=== PATIENT | male | born 1970 | race Caucasian/White ===

== ENCOUNTER 2017-03-10 00:03 | Emergency (ER) | payer BC ==
[2017-03-10 00:16] VITALS: BP 165/99; PULSE 120; RESP 18; TEMP 99; O2SAT 92
--- NOTE | 2017-03-10 00:17 | EDPHY ---
H & P HPI/ROS: HPI CHIEF COMPLAINT: Head laceration, head trauma, tazed, [place], altercation with police, alcohol intoxication HISTORY OF PRESENT ILLNESS: This patient is a 46-year-old male denies any significant medical history presents emergency room by EMS with police. 911 was called to his house as he was intoxicated with alcohol and got into an argument with his . His called 911. Please make contact with him and became aggressive with police. He was tazed once. He did become physically aggressive with police. Sustained a left forehead laceration 3 cm in horizontal length. Upon arrival here in emergency room the patient smells of alcohol, slurring his speech slightly but denies any pain anywhere. Past Medical History: Denies medical history Past Surgical History: Denies surgical history Social History: Endorses alcohol this evening states he had 3 drinks Family History: Noncontributory ROS REVIEW OF SYSTEMS: A comprehensive 10 point review of systems is otherwise negative aside from elements mentioned in the history of present illness. Exam Constitutional Smells of etoh, triage nursing summary reviewed, vital signs reviewed, awake/alert. Eyes normal conjunctivae and sclera, EOMI, PERRLA. HENT head/neck: Left forehead: Vertical laceration 5 cm in length, no midline cervical spine pain, no step-offs, moist mucus membranes, no epistaxis, neck supple/ no meningismus, no raccoon eyes. Respiratory clear to auscultation bilaterally, normal breath sounds, no respiratory distress, no wheezing. Cardiovascular Chest wall: TTP sternum, No crepitus, no flail chest. No subQ air. No lateral rib pain, rate normal, regular rhythm, no murmur, no edema, distal pulses normal. Gastrointestinal soft, non-tender, no rebound, no guarding, normal bowel sounds, no distension, no pulsatile mass. Genitourinary no CVA tenderness. Musculoskeletal no midline vertebral tenderness, full range of motion, no calf swelling, no tenderness of extremities, no meningismus, good pulses, neurovascularly intact. Skin Ecchymosis to both forearms, Tazer site to left [id number]. Also Tazer site to left forearm. pink, warm, & dry, no rash, skin atraumatic. Neurologic Smells of etoh, awake, alert and oriented x 3, AAOx3, moves all 4 extremities equally, motor intact, sensory intact, CN II-XII intact, normal cerebellar, normal vision. Psychiatric normal mood/affect. Heme/Lymph/Immune no lymphadenopathy. Differential Diagnosis: Includes but is not limited to and in no particular order: Includes closed head injury, intracranial bleed, skull fracture, forehead laceration, alcohol intoxication. Medical Decision Making: Plan for this patient check basic blood work, EKG, CT head without contrast for trauma. Will need to suture his forehead laceration. Re-evaluation: EKG interpretation by me on record in [facility] system. Impression time of EKG 0020. This is sinus tachycardia rate of 117. I do not appreciate acute ischemia specifically no ST elevation, ST depression, T-wave abnormalities prolonged intervals. Unremarkable EKG except for tachycardia. Laceration Repair Procedure: Verbal Consent was obtained, Under sterile conditions, The patient had lidocaine with epinephrine used approximately 5ccs to local anesthetize the 5CM left forehead Laceration. The wound was copiously irrigated with sterile fluid, the wound was explored for foreign bodies there were none visualized, the wound was explored with a sterile glove to the base. There are no deep structures involved, including no arterial injury. 5 6.O PROLENE interrupted Sutures were placed in this patient's laceration. He had good close approximation of the wound edges. He Tolerated this well. ED x-ray chest two view: Negative for acute cardiopulmonary disease specifically no pneumothorax, rib fracture. Image interpreted myself. ED CT scan head without IV contrast: Negative for acute bleed or skull fracture. Left forehead hematoma. See formal report by Dr. Kyle. Debris reported near wound. I have copiously irrigating clean this out. 0132AM: Re-evaluation at this time patient resting comfortably. No complaints. CT scan reviewed as well as x-ray reviewed. Laceration was sterilely repair. Cleaned out. Foreign body seen on CT scan his wounds were copiously irrigated. Patient understands watch for further infection down lying this includes swelling, pus, drainage. Blood work reviewed. Patient now clinically sober. Stable gait, calm, cooperative. Safe for discharge. Source: Patient, Police, EMS - Medical/Surgical History Hx Asthma: No Hx Chronic Respiratory Disease: No Hx Diabetes: No Hx Cardiac Disease: No Hx Renal Disease: No Hx Cirrhosis: No Hx Alcoholism: No Hx HIV/AIDS: No Hx Splenectomy or Spleen Trauma: No Other PMH: HX: DENIES - Social History Smoking Status: Current some day smoker Constitutional: Initial Vital Signs Temperature (C) 37.2 C 03/10/17 00:14 Heart Rate 120 H 03/10/17 00:14 Respiratory Rate 18 03/10/17 00:14 Blood Pressure 165/99 H 03/10/17 00:14 O2 Sat (%) 92 03/10/17 00:14 O2 Delivery Mode Room Air Allergies/Adverse Reactions: No Known Allergies Allergy (Unverified 03/14/14 21:42) Home Medications: Medication Instructions Recorded Carisoprodol [Soma] 350 mg PO TIDMEAL PRN #20 tab 01/04/15 HYDROmorphone HCL [Dilaudid] 2 mg PO QID PRN #30 tab 01/04/15 Ibuprofen [Motrin] 800 mg PO Q8 #30 tab 01/04/15 Medical Decision Making - Data Points Laboratory Results: Laboratory Results 03/10/17 00:50 03/10/17 00:50 03/10/17 03/10/17 00:50 00:50 WBC 8.57 10^3/uL 10^3/uL (3.80-9.50) RBC 4.80 10^6/uL 10^6/uL (4.40-6.38) Hgb 15.0 g/dL g/dL (13.7-17.5) Hct 42.7 % % (40.0-51.0) MCV 89.0 fL fL (81.5-99.8) MCH 31.3 pg pg (27.9-34.1) MCHC 35.1 g/dL g/dL (32.4-36.7) RDW 12.1 % % (11.5-15.2) Plt Count 251 10^3/uL 10^3/uL (150-400) MPV 9.6 fL fL (8.7-11.7) Neut % (Auto) 66.4 % % (39.3-74.2) Lymph % (Auto) 22.8 % % (15.0-45.0) [place] % (Auto) 8.3 % % (4.5-13.0) Eos % (Auto) 1.1 % % (0.6-7.6) Baso % (Auto) 0.5 % % (0.3-1.7) Nucleat RBC Rel Count 0.0 % % (0.0-0.2) Absolute Neuts (auto) 5.70 10^3/uL 10^3/uL (1.70-6.50) Absolute Lymphs (auto) 1.95 10^3/uL 10^3/uL (1.00-3.00) Absolute Monos (auto) 0.71 10^3/uL 10^3/uL (0.30-0.80) Absolute Eos (auto) 0.09 10^3/uL 10^3/uL (0.03-0.40) Absolute Basos (auto) 0.04 10^3/uL 10^3/uL (0.02-0.10) Absolute Nucleated RBC 0.00 10^3/uL 10^3/uL (0-0.01) Immature Gran % 0.9 % % (0.0-1.1) Immature Gran # 0.08 10^3/uL 10^3/uL (0.00-0.10) Sodium 142 mEq/L mEq/L (134-144) Potassium 4.1 mEq/L mEq/L (3.5-5.2) Chloride 107 mEq/L mEq/L (97-110) Carbon Dioxide 20 mEq/l L mEq/l (22-31) Anion Gap 15 mEq/L mEq/L (8-16) BUN 17 mg/dL mg/dL (7-23) Creatinine 1.0 mg/dL mg/dL (0.7-1.3) Estimated GFR > 60 Glucose 100 mg/dL mg/dL (70-100) Calcium 9.4 mg/dL mg/dL (8.5-10.4) Ethyl Alcohol 177 mg/dL H mg/dL (0-10) Medications Given: Discontinued Medications Sodium Chloride (Ns) 1,000 mls @ 0 mls/hr IV ONCE ONE PRN Reason: Wide Open Stop: 03/10/17 00:20 Last Admin: 03/10/17 01:06 Dose: 1,000 mls Departure - Departure Disposition: Home, Routine, Self-Care Clinical Impression: Alcohol intoxication Qualifiers: Complication of substance-induced condition: uncomplicated Qualified Code(s): F10.920 - Alcohol use, unspecified with intoxication, uncomplicated Forehead laceration Qualifiers: Encounter type: initial encounter Qualified Code(s): S01.81XA - Laceration without foreign body of other part of head, initial encounter Condition: Good Instructions: Care For Your Stitches (ED), Laceration (ED) Additional Instructions: 1. Your sutures need to be removed in 7 days. 2. Keep your wound clean, dry, protected. 3. Watch for signs of infection this includes redness, swelling, drainage, pus. Referrals: Patient,NotPresent [Unknown] - As per Instructions
[2017-03-10] MEDS ORDERED: NS 1,000 ML IV ONE (00:19)
--- NOTE | 2017-03-10 00:23 | CPEKG ---
Heart Rate: 117 RR Interval: 513 P-R Interval: 132 QRSD Interval: 74 QT Interval: 308 QTC Interval: 430 P Mesa: 64 QRS [place]: 9 T Wave [place]: 77 EKG Severity - OTHERWISE NORMAL ECG - EKG Impression: SINUS TACHYCARDIA Electronically Signed By: Sanya Guajardo 11-Mar-2017 13:59:20
[2017-03-10 00:59] LABS: % IMMATURE GRANULYOCYTES 0.9 % (0.0-1.1); ABSOLUTE IMMATURE GRANULOCYTES 0.08 10^3/uL (0.00-0.10); ADD DIFF? NO; ADD MORPH? NO; ADD SCAN? NO; ATYPICAL LYMPHOCYTE FLAG 10 (0-99); FRAGMENT RBC FLAG 0 (0-99); HEMATOCRIT 42.7 % (40.0-51.0); LEFT SHIFT FLG 10 (0-99); LIPEMIA HEMOLYSIS FLAG 90 (0-99); MEAN CELL HEMOGLOBIN 31.3 pg (27.9-34.1); MEAN CELL HEMOGLOBIN CONCENTR. 35.1 g/dL (32.4-36.7); MEAN PLATELET VOLUME 9.6 fL (8.7-11.7); PLATELET CLUMPS FLAG 0 (0-99); PLATELET COUNT 251 10^3/uL (150-400); RED CELL DISTRIBUTION WIDTH 12.1 % (11.5-15.2)
[2017-03-10 01:24] LABS: ANION GAP 15 mEq/L (8-16); CALCIUM 9.4 mg/dL (8.5-10.4); CARBON DIOXIDE 20 mEq/l (22-31); CHLORIDE 107 mEq/L (97-110); ETHANOL SERUM 177 mg/dL (0-10); GLOMERULAR FILTRATION RATE > 60; GLUCOSE 100 mg/dL (70-100); POTASSIUM 4.1 mEq/L (3.5-5.2); SODIUM 142 mEq/L (134-144)
== END 2017-03-10 01:45 | disposition home or self-care (01) ==
LOC: EDUNIT#
PROC: 0HQ1XZZ Repair Face Skin, External Approach (ICD-10-PCS; principal; 2017-03-10)
DX: S01.81XA Laceration without foreign body of other part of head, initial encounter (principal); F10.120 Alcohol abuse with intoxication, uncomplicated; F17.200 Nicotine dependence, unspecified, uncomplicated; X58.XXXA Exposure to other specified factors, initial encounter
CPT/HCPCS: G0480

== ENCOUNTER 2018-04-30 09:07 | Emergency (ER) | payer BC ==
--- NOTE | 2018-04-30 10:56 | EDPHY ---
H & P Smoking Status: Current some day smoker Time Seen by Provider: 04/30/18 09:28 HPI/ROS: CHIEF COMPLAINT: Scalp laceration HISTORY OF PRESENT ILLNESS: 47-year-old male presents to the emergency department with laceration to his scalp. The patient was at home painting his house early this morning IV stood up abruptly while he was on the ladder and cut the left lateral aspect of his scalp. He did not lose consciousness. He denies a headache. He does not feel dizzy. No neck or back pain. No chest pain or difficulty breathing. No abdominal pain. He believes his tetanus shot is current. REVIEW OF SYSTEMS: Constitutional: No fever, no chills. Eyes: No double or blurry vision. ENT: No sore throat. Respiratory: No cough, no shortness of breath. Cardiac: No chest pain. Gastrointestinal: No abdominal pain, vomiting or diarrhea. Genitourinary: No dysuria. Musculoskeletal: No neck or back pain. Skin: Scalp laceration. No rashes. Neurological: No headache. (Kelly Larsen) Past Medical/Surgical History: Negative (Kelly Larsen) Social History: (Kelly Larsen) Physical Exam: General Appearance: Alert, no distress. Mentating normally and answering questions appropriately. Eyes: Pupils equal and round. Extraocular motions are all intact. ENT: Mouth: Mucous membranes moist. Respiratory: No wheezing, rhonchi, or rales, lungs are clear to auscultation. Cardiovascular: Regular rate and rhythm. Gastrointestinal: Abdomen is soft and nontender, no masses, no rebound or guarding, bowel sounds normal. Neurological: Alert and oriented x 3, cranial nerves II through XII grossly intact Skin: 3 cm laceration to the left frontal aspect of the scalp. No evidence of depressed skull fracture. Warm and dry, no rashes. Musculoskeletal: Nontender to palpate along the cervical, thoracic or lumbar spine. Neck is supple. Extremities: Full range of motion and no peripheral edema. Psychiatric: Patient is oriented X 3, there is no agitation. (Kelly Larsen) Constitutional: Initial Vital Signs Temperature (C) 36.6 C 04/30/18 09:09 Heart Rate 63 04/30/18 09:09 Respiratory Rate 16 04/30/18 09:09 Blood Pressure 131/80 H 04/30/18 09:09 O2 Sat (%) 96 04/30/18 09:09 O2 Delivery Mode Room Air Allergies/Adverse Reactions: No Known Allergies Allergy (Verified 04/30/18 09:08) Home Medications: Medication Instructions Recorded FLUoxetine [PROzac] 10 mg PO 04/30/18 Medical Decision Making Procedures: Laceration repair. Verbal consent was obtained from the patient. The 3 cm laceration on the left frontal scalp was anesthetized using 1% lidocaine with epinephrine. The wound was irrigated with saline, draped and explored to its base with a gloved finger. There were no deep structures involved. The wound was repaired with 5 0 Ethilon, 6 sutures. The wound repair was simple. The procedure was performed by myself. (Kelly Larsen) ED Course/Re-evaluation: 47-year-old male presents emergency department with scalp laceration. The wound was repaired, see procedure note. No evidence of depressed skull fracture. I do not think imaging studies are indicated. He did not lose consciousness. He does not have a headache. He was given wound care precautions. His tetanus shot is current. (Kelly Larsen) I did not see this patient while he was in the emergency department. However his care was discussed with the PA while the patient was in the department. I agree with treatment plan management (Damian Jeffries) Differential Diagnosis: Head injury including but not limited to concussion, skull fracture, intraparenchymal contusion, subarachnoid, subdural and epidural hematoma. (Kelly Larsen) Departure - Departure Disposition: Home, Routine, Self-Care Clinical Impression: Scalp laceration Condition: Good Instructions: Care For Your Stitches (ED), Laceration (ED), Acute Wounds (ED) Additional Instructions: Wound Care Follow-Up: Removal of sutures in 5-7 days. Suture removal is complimentary in uncomplicated cases. Infection or abnormal findings would require reevaluation by the MD. In that case, you may be billed. Referrals: Dominick Cowart MD [Primary Care Provider] - As per Instructions
[2018-04-30 11:06] VITALS: BP 131/83
== END 2018-04-30 11:05 | disposition home or self-care (01) ==
PROC: 0HQ0XZZ Repair Scalp Skin, External Approach (ICD-10-PCS; principal; 2018-04-30)
DX: S01.01XA Laceration without foreign body of scalp, initial encounter (principal); W22.09XA Striking against other stationary object, initial encounter; Y92.019 Unspecified place in single-family (private) house as the place of occurrence of the external cause; Y93.H9 Activity, other involving exterior property and land maintenance, building and construction; Y99.8 Other external cause status; F17.210 Nicotine dependence, cigarettes, uncomplicated